=== PATIENT | female | born 1985 | race Caucasian/White ===

== ENCOUNTER 2019-04-07 18:43 | Day surgery (SDC) | payer BC ==
[2019-04-07 19:16] VITALS: BP 131/60; BMI 28.5
[2019-04-07] MEDS ORDERED: FLU VACC QS2019-20(6MOS UP)/PF 60 MCG/0.5 ML SYRINGE IM ONE (19:45)
[2019-04-07] MEDS ORDERED: hydrALAZINE 20 MG/ML VIAL SLOW IVP PRN (21:27)
--- NOTE | 2019-04-07 21:50 | PRG ---
DATE OF SERVICE: 04/07/2019 PRESENTING COMPLAINT: Contractions at 39 weeks gestation. HISTORY OF PRESENT ILLNESS: Ms. Dallas is a 33-year-old primigravida with EDC of 04/10, scheduled for induction at 40 weeks gestation. She presents complaining of contractions. Denies rupture of membranes. Denies leakage of fluid. Reports an active fetus. 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 Pap negative. Rubella immune. VDRL nonreactive. Hepatitis B, GC, chlamydia negative. Group B strep negative. PAST MEDICAL HISTORY: Migraines. PAST SURGICAL HISTORY: None. ALLERGIES: BENADRYL. MEDICATIONS: vitamins. SOCIAL HISTORY: Denies tobacco, alcohol, or drug use. FAMILY HISTORY: Noncontributory. REVIEW OF SYSTEMS: Noncontributory. PHYSICAL EXAMINATION: GENERAL: White female, no acute distress, complaining of contractions. VITAL SIGNS: Temperature 98.9, respirations 18, pulse 92, blood pressure 118/72. HEENT: Within normal limits. LUNGS: Auscultation bilaterally. HEART: Regular rhythm. ABDOMEN: Soft and nontender. Cervical exam by RN x2, 2 hours apart was 290, -1 cephalic, bag of water intact. EXTREMITIES: No clubbing, cyanosis, or edema. heart rate tracing for greater than 30 minutes reveals contractions Q3-5. Category 1 heart rate tracing baseline 140s. IMPRESSION: Prodromal labor at term. Of note, the patient desires low intervention. The patient has not had any cervical change for 2 hours. PLAN: Discussed with the patient options. Reassured the patient. The patient will return home and will represent with worsening of contractions, rupture of membrane, decreased movement, or increased vaginal bleeding. Job ID: [id number]
== END 2019-04-07 21:48 | disposition home or self-care (01) ==
LOC: EEVIPCON 18:43 → L&D/OP 18:43
PROVIDERS: ATTEND Student in an Organized Health Care Education/Training Program
DX: O47.1 False labor at or after 37 completed weeks of gestation (principal); O09.513 Supervision of elderly primigravida, third trimester; O99.353 Diseases of the nervous system complicating pregnancy, third trimester; G43.909 Migraine, unspecified, not intractable, without status migrainosus; Z3A.39 39 weeks gestation of pregnancy; Z79.899 Other long term (current) drug therapy; Z88.8 Allergy status to other drugs, medicaments and biological substances

== ENCOUNTER 2019-04-08 10:29 | Inpatient (IN) | payer BC ==
[2019-04-08 11:20] VITALS: BMI 28.5
[2019-04-08] MEDS ORDERED: Fentanyl 4 mcg/Bup 0.1% Cadd 100 ML ONE ×2 (11:51→19:06)
[2019-04-08] MEDS ORDERED: Butorphanol Tartrate 1 MG/ML VIAL SLOW IVP PRN (11:58)
[2019-04-08] MEDS ORDERED: NS / Oxytocin 40 units/1000ml 1,000 ML IV PRN (11:58)
[2019-04-08] MEDS ORDERED: Lidocaine 1% (PF) 30 ML VIAL SC PRN (11:58)
[2019-04-08] MEDS ORDERED: Ibuprofen 800 MG TAB PO PRN (11:58)
[2019-04-08] MEDS ORDERED: hydrALAZINE 20 MG/ML VIAL SLOW IVP PRN (11:58)
[2019-04-08] MEDS ORDERED: HYDROcodone/Acetaminophen 5/325 mg Tablet PO PRN (11:58)
[2019-04-08] MEDS ORDERED: Ondansetron PF 4 MG/2 ML Vial IVP PRN ×2 (11:58→12:47)
[2019-04-08] MEDS ORDERED: Lactated Ringer's 1,000 ML IV SCH (12:00)
[2019-04-08 12:05] LABS: Hemoglobin 12.5 g/dL (12.0-16.0); Mean Corpuscular HGB CONC 34.3 g/dL (32.0-36.0); Mean Corpuscular Hemoglobin 28.9 pg (27.0-31.0); Mean Corpuscular Volume 84.1 fL (78.0-98.0); Mean Platelet Volume 8.9 fL (7.4-10.4); Platelet Count 222 thou/uL (130-400); RBC Distribution Width 13.3 % (11.5-14.5); Red Blood Cell (RBC) Count 4.33 mill/uL (4.20-5.40)
[2019-04-08] MEDS ORDERED: Fentanyl 100 MCG/2 ML VIAL ONE (12:18)
[2019-04-08] MEDS ORDERED: Bupivacaine 0.5% 10 ML VIAL ONE (12:18)
[2019-04-08] MEDS: Lactated Ringer's 1,000 ML IV SCH ×2 (12:24→16:05)
[2019-04-08 12:34] LABS: HBSAg Index 0.22 S/CO (0-0.99); Hep B Surf Ag Non-Reactive S/CO (NonReactive); Syphilis Antibody Nonreactive (Nonreactive); Syphilis Antibody Index 0.04 S/CO (<1.00 Non-Reactive)
[2019-04-08] MEDS ORDERED: ePHEDrine/0.9% NaCl/PF SYRINGE 50 mg/10 ml SLOW IVP PRN (12:47)
[2019-04-08] MEDS ORDERED: Naloxone HCl 0.4 mg/ml Vial IVP PRN ×2 (12:47)
[2019-04-08] MEDS ORDERED: Fentanyl 100 MCG/2 ML VIAL I-THECAL SCH (12:47)
[2019-04-08] MEDS ORDERED: Acetaminophen 325 MG TAB PO PRN (12:47)
[2019-04-08] MEDS ORDERED: Lactated Ringer's 500 ML IV PRN (12:47)
[2019-04-08] MEDS ORDERED: diphenhydrAMINE 50 MG/ML VIAL IVP PRN (12:47)
[2019-04-08] MEDS ORDERED: Promethazine HCl 25 MG/ML VIAL IM PRN (12:47)
[2019-04-08] MEDS ORDERED: Fentanyl 4 mcg/Bupivacaine 0.1% Cassette 100 ML EPIDURAL SCH (13:00)
[2019-04-08] MEDS ORDERED: Communication Order-Pharmacy FS SCH (13:00)
[2019-04-08] MEDS ORDERED: NS / Oxytocin 40 units/1000ml 1,000 ML ONE (15:56)
[2019-04-08] MEDS ORDERED: Lidocaine 1% (PF) 30 ML VIAL ONE (15:56)
[2019-04-08] MEDS ORDERED: NS w/ Oxytocin 10 units 500 ML IV SCH (19:15)
[2019-04-08] MEDS ORDERED: Dextrose 5%-Lactated Ringers 1,000 ML IV SCH (21:00)
[2019-04-09] MEDS ORDERED: NS / Oxytocin 40 units/1000ml 1,000 ML IV SCH (02:29)
[2019-04-09] MEDS ORDERED: Lanolin Ointment 7 GM TUBE TOP PRN (02:29)
[2019-04-09] MEDS ORDERED: Milk Of Magnesia 30 ML UDCUP PO PRN (02:29)
[2019-04-09] MEDS ORDERED: hydrALAZINE 20 MG/ML VIAL SLOW IVP PRN (02:29)
[2019-04-09] MEDS ORDERED: Ondansetron PF 4 MG/2 ML Vial IVP PRN (02:29)
[2019-04-09] MEDS ORDERED: Bisacodyl 10 MG SUPP PR PRN (02:29)
[2019-04-09] MEDS: Ibuprofen 800 MG TAB PO SCH ×3 (02:40→21:54)
[2019-04-09 06:07] LABS: #Basophils 0.1 thou/uL (0.0-0.2); #Lymphocytes 1.8 thou/uL (1.20-3.40); #Monocytes 0.8 thou/uL (0.11-0.59); #Neutrophils 15.5 thou/uL (1.40-6.50); %Basophils 0.3 % (0.0-1.0); %Eosinophils 0.1 % (0.0-10.0); %Monocytes 4.4 % (0.0-10.0); %Neutrophils 85.2 % (42.0-75.0); Hemoglobin 9.9 g/dL (12.0-16.0); Mean Corpuscular HGB CONC 32.4 g/dL (32.0-36.0); Mean Corpuscular Hemoglobin 27.7 pg (27.0-31.0); Mean Corpuscular Volume 85.4 fL (78.0-98.0); Mean Platelet Volume 8.1 fL (7.4-10.4); Platelet Count 167 thou/uL (130-400); RBC Distribution Width 13.2 % (11.5-14.5); Red Blood Cell (RBC) Count 3.56 mill/uL (4.20-5.40); White Blood Cell (WBC) Count 18.2 thou/uL (4.8-10.8)
--- NOTE | 2019-04-09 08:10 | PRG ---
DATE OF SERVICE: 04/09/2019 SUBJECTIVE: The patient is day 1, status post a term spontaneous vaginal delivery. She has no complaints this morning, is tolerating p.o., voiding on her own, having a decreased lochia and good pain control. OBJECTIVE: VITAL SIGNS: This morning, blood pressure is 112/58, temperature is 98.3, pulse is 71, respiratory rate of 18, saturating is 98% on room air. GENERAL: She appears to be in no acute distress. She is alert, oriented, cooperative, and pleasant to interact with. HEENT: Head is normocephalic and atraumatic. Fundus is firm at the umbilicus. EXTREMITIES: Nontender and nonedematous. LABORATORY DATA: Her hemoglobin is 9.9, hematocrit 30.4, platelets of a 167,000. ASSESSMENT AND PLAN: The patient is day 1, status post a term spontaneous vaginal delivery. Anticipate discharge tomorrow. Job ID: [id number]
[2019-04-09] MEDS ORDERED: Adacel (T-DAP) 0.5 ML SYRINGE IM ONE (09:00)
--- NOTE | 2019-04-09 09:04 | DN ---
DATE OF PROCEDURE: 04/08/2019 The patient delivered a female on 04/08/2019 at 2334 hours by uncomplicated term spontaneous vaginal delivery. Apgars were 8 and 9. Weight was 3402 g. Placenta delivered spontaneously followed by Pitocin infusion. There was a second-degree laceration repaired in the usual fashion. Quantitative blood loss [address] Brink is the delivering physician. Counts were correct. Complications were none. Mother and baby are both stable in the room in the immediate . Job ID: [id number]
[2019-04-09] MEDS: Prenatal Vitamin 1 TAB PO SCH (09:48)
[2019-04-09] MEDS: Ferrous Sulfate 325 MG TAB PO SCH ×3 (09:48→21:55)
[2019-04-09] MEDS: Docusate Calcium (SURFAK) 240 MG CAP PO SCH ×2 (09:48→21:54)
[2019-04-09] MEDS: HYDROcodone/Acetaminophen 5/325 mg Tablet PO PRN ×3 (09:51→22:00)
[2019-04-09] MEDS: Benzocaine-Menthol 82.5 ML CAN TOP PRN (09:51)
[2019-04-10] MEDS: Ibuprofen 800 MG TAB PO SCH (06:39)
[2019-04-10] MEDS: HYDROcodone/Acetaminophen 5/325 mg Tablet PO PRN ×2 (06:39→10:48)
[2019-04-10 08:36] VITALS: BP 106/56; TEMP 98.6
[2019-04-10] MEDS: Prenatal Vitamin 1 TAB PO SCH (08:36)
[2019-04-10] MEDS: Docusate Calcium (SURFAK) 240 MG CAP PO SCH (08:36)
[2019-04-10] MEDS: Ferrous Sulfate 325 MG TAB PO SCH (08:37)
[2019-04-10] MEDS: Benzocaine-Menthol 82.5 ML CAN TOP PRN (12:27)
== END 2019-04-10 14:15 | disposition home or self-care (01) | DRG 807 ==
LOC: L&D/OP 10:29 → L&D 14:54 → 3SW 04-09 03:24
PROVIDERS: ADMIT Student in an Organized Health Care Education/Training Program; ATTEND Student in an Organized Health Care Education/Training Program
PROC: 10E0XZZ Delivery of Products of Conception, External Approach (ICD-10-PCS; principal; 2019-04-08)
PROC: 0KQM0ZZ Repair Perineum Muscle, Open Approach (ICD-10-PCS; 2019-04-08)
DX: O70.1 Second degree perineal laceration during delivery (principal); Z37.0 Single live birth; Z3A.39 39 weeks gestation of pregnancy
CPT/HCPCS: 36415; 51702; 85025; 85027; 86780; 86850; 86900; 86901; 87340; 99283; 99285; J2001; J2590; J3010; J3490